=== PATIENT | male | born 1980 | race Caucasian/White ===

== ENCOUNTER → 2020-09-09 | Outpatient (CLI) | payer OTHER | END | disposition home or self-care (01) | LOC: CFH 09:58 | PROVIDERS: ATTEND Chiropractor | DX: M47.813 Spondylosis without myelopathy or radiculopathy, cervicothoracic region (principal); M41.84 Other forms of scoliosis, thoracic region; M99.04 Segmental and somatic dysfunction of sacral region; M99.02 Segmental and somatic dysfunction of thoracic region; M99.01 Segmental and somatic dysfunction of cervical region; M99.03 Segmental and somatic dysfunction of lumbar region | CPT/HCPCS: 72040; 72072; 72110; 72170 ==